=== PATIENT | male | born 1985 | race Caucasian/White ===

== ENCOUNTER 2017-01-01 07:55 | Emergency (ER) | payer OTHER ==
[~2017-01-01] VITALS: Ht 175.3 cm; Wt 72.6 kg
[2017-01-01] MEDS ORDERED: DOK (08:06)
[2017-01-01 09:19] LABS: MEAN CORPUSCULAR HEMOGLOBIN 30.5 pg (27.0-33.0); MEAN CORPUSCULAR HGB CONC 36.2 g/dl (32.0-36.5); MEAN CORPUSCULAR VOLUME 84.2 fl (80.0-96.0); RED CELL DISTRIBUTION WIDTH 12.3 % (11.5-14.5)
[2017-01-01 09:41] LABS: INR 1.08
[2017-01-01 10:39] VITALS: BP 135/74
== END 2017-01-01 10:40 | disposition home or self-care (01) ==
LOC: M ED 09:01
DX: K64.5 Perianal venous thrombosis (principal); F17.200 Nicotine dependence, unspecified, uncomplicated

== ENCOUNTER 2017-11-19 08:17 | Inpatient (IN) | payer OTHER ==
[2017-11-19] MEDS: NICOTINE 21MG/24HR 1 EA TRANSDERMAL TD (09:00)
[2017-11-19 10:13] LABS: HEMATOCRIT 46.7 % (42.0-52.0); HEMOGLOBIN 16.4 g/dl (14.0-18.0); MEAN CORPUSCULAR HEMOGLOBIN 28.7 pg (27.0-33.0); MEAN CORPUSCULAR HGB CONC 35.1 g/dl (32.0-36.5); MEAN CORPUSCULAR VOLUME 81.8 fl (80.0-96.0); PLATELET COUNT, AUTOMATED 350 10^3/uL (150-450); RED BLOOD COUNT 5.71 10^6/uL (4.30-6.10); RED CELL DISTRIBUTION WIDTH 12.8 % (11.5-14.5); WHITE BLOOD COUNT 12.8 10^3/uL (4.0-10.0)
[2017-11-19 10:59] LABS: AMPHETAMINES LEVEL URINE NEGATIVE (NEGATIVE); BARBITURATES URINE NEGATIVE (NEGATIVE); BENZODIAZEPINES URINE NEGATIVE (NEGATIVE); CANNABINOIDS URINE NEGATIVE (NEGATIVE); COCAINE METABOLITE URINE NEGATIVE (NEGATIVE); METHADONE URINE NEGATIVE (NEGATIVE); OPIATES URINE NEGATIVE (NEGATIVE); PHENCYCLIDINE URINE NEGATIVE (NEGATIVE)
[2017-11-19 11:01] LABS: ALBUMIN 4.1 GM/DL (3.2-5.2); ALBUMIN/GLOBULIN RATIO 1.32 (1.00-1.93); ALKALINE PHOSPHATASE 90 U/L (45-117); ALT/SGPT 21 U/L (12-78); ANION GAP 6 MEQ/L (8-16); AST/SGOT 14 U/L (7-37); BILIRUBIN,DIRECT 0.1 MG/DL (0.0-0.2); BILIRUBIN,TOTAL 0.6 MG/DL (0.2-1.0); BLOOD UREA NITROGEN 16 MG/DL (7-18); CALCIUM LEVEL 8.9 MG/DL (8.5-10.1); CARBON DIOXIDE LEVEL 25 MEQ/L (21-32); CHLORIDE LEVEL 110 MEQ/L (98-107); CREATININE FOR GFR 0.93 MG/DL (0.70-1.30); ETHYL ALCOHOL (ETHANOL) < 0.003 % (0.000-0.010); GLOMERULAR FILTRATION RATE > 60.0 (>60); GLUCOSE, FASTING 97 MG/DL (70-100); SALICYLATE LEVEL 4.5 MG/DL (5.0-30.0); SODIUM LEVEL 141 MEQ/L (136-145); THYROID STIMULATING HORMONE 0.697 uIU/ML (0.358-3.740); TOTAL PROTEIN 7.2 GM/DL (6.4-8.2)
[2017-11-19 11:03] LABS: ACETAMINOPHEN LEVEL < 2.0 UG/ML (10.0-30.0)
[2017-11-19] MEDS ORDERED: MOM 30ML SUSPENSION UDC PO (15:15)
[2017-11-19] MEDS ORDERED: ACETAMINOPHEN TAB 650MG DOSE (2X325MG) PO (15:15)
[2017-11-19] MEDS: OLANZapine ORAL DISINTEGRATING TAB 5MG PO (17:55)
[2017-11-19] MEDS: MAALOX 30 ML SUSP *UDC PO (19:05)
[2017-11-20] MEDS ORDERED: NICOTINE 21MG/24HR 1 EA TRANSDERMAL TD (09:00)
[2017-11-20] MEDS: NICOTINE 21MG/24HR 1 EA TRANSDERMAL TD (09:01)
[2017-11-20] MEDS: OLANZapine ORAL DISINTEGRATING TAB 5MG PO ×2 (09:06→18:03)
[2017-11-20] MEDS: traZODone 50 MG TAB PO (21:24)
[2017-11-21 06:39] LABS: HEMATOCRIT 46.4 % (42.0-52.0); MEAN CORPUSCULAR HEMOGLOBIN 29.3 pg (27.0-33.0); MEAN CORPUSCULAR HGB CONC 34.5 g/dl (32.0-36.5); MEAN CORPUSCULAR VOLUME 84.8 fl (80.0-96.0); PLATELET COUNT, AUTOMATED 301 10^3/uL (150-450); RED BLOOD COUNT 5.47 10^6/uL (4.30-6.10); RED CELL DISTRIBUTION WIDTH 12.8 % (11.5-14.5); WHITE BLOOD COUNT 7.3 10^3/uL (4.0-10.0)
[2017-11-21] MEDS: NICOTINE 21MG/24HR 1 EA TRANSDERMAL TD (08:09)
[2017-11-21] MEDS: MAALOX 30 ML SUSP *UDC PO (11:29)
[2017-11-21] MEDS: OLANZapine ORAL DISINTEGRATING TAB 5MG PO (20:52)
[2017-11-21] MEDS: traZODone 50 MG TAB PO (21:03)
[2017-11-22] MEDS: NICOTINE 21MG/24HR 1 EA TRANSDERMAL TD (08:58)
[2017-11-22] MEDS: MAALOX 30 ML SUSP *UDC PO (09:01)
[2017-11-22] MEDS: OLANZapine ORAL DISINTEGRATING TAB 5MG PO (11:37)
[2017-11-22] MEDS: traZODone 50 MG TAB PO (22:05)
[2017-11-23] MEDS: OLANZapine ORAL DISINTEGRATING TAB 5MG PO ×2 (01:55→22:47)
[2017-11-23] MEDS: NICOTINE 21MG/24HR 1 EA TRANSDERMAL TD (10:32)
[2017-11-23] MEDS: MAALOX 30 ML SUSP *UDC PO (20:02)
[2017-11-23] MEDS: traZODone 100 MG TAB PO (22:47)
[2017-11-24] MEDS: NICOTINE 21MG/24HR 1 EA TRANSDERMAL TD ×2 (09:00→14:20)
[2017-11-24] MEDS: MAALOX 30 ML SUSP *UDC PO (21:21)
[2017-11-24] MEDS: OLANZapine ORAL DISINTEGRATING TAB 5MG PO (22:13)
[2017-11-24] MEDS: traZODone 100 MG TAB PO (22:13)
[2017-11-25] MEDS: NICOTINE 21MG/24HR 1 EA TRANSDERMAL TD (08:43)
== END 2017-11-25 12:30 | disposition home or self-care (01) | DRG 882 ==
LOC: M ED 08:17 → M ED INP 11:51 → M PSY 13:36
DX: F43.23 Adjustment disorder with mixed anxiety and depressed mood (principal); F17.200 Nicotine dependence, unspecified, uncomplicated; D72.829 Elevated white blood cell count, unspecified

== ENCOUNTER 2018-03-31 10:09 | Inpatient (IN) | payer OTHER ==
[2018-03-31 10:46] LABS: HEMATOCRIT 45.5 % (42.0-52.0); HEMOGLOBIN 16.2 g/dl (13.5-17.5); MEAN CORPUSCULAR HEMOGLOBIN 29.4 pg (27.0-33.0); MEAN CORPUSCULAR HGB CONC 35.6 g/dl (32.0-36.5); MEAN CORPUSCULAR VOLUME 82.6 fl (80.0-96.0); PLATELET COUNT, AUTOMATED 274 10^3/uL (150-450); RED BLOOD COUNT 5.51 10^6/uL (4.30-6.10); RED CELL DISTRIBUTION WIDTH 12.3 % (11.5-14.5); WHITE BLOOD COUNT 9.5 10^3/uL (4.0-10.0)
[2018-03-31 11:15] LABS: AMPHETAMINES LEVEL URINE NEGATIVE (NEGATIVE); BARBITURATES URINE NEGATIVE (NEGATIVE); BENZODIAZEPINES URINE NEGATIVE (NEGATIVE); CANNABINOIDS URINE NEGATIVE (NEGATIVE); COCAINE METABOLITE URINE NEGATIVE (NEGATIVE); METHADONE URINE NEGATIVE (NEGATIVE); OPIATES URINE NEGATIVE (NEGATIVE); PHENCYCLIDINE URINE NEGATIVE (NEGATIVE)
[2018-03-31 11:22] LABS: ALBUMIN 4.1 GM/DL (3.2-5.2); ALBUMIN/GLOBULIN RATIO 1.32 (1.00-1.93); ALKALINE PHOSPHATASE 76 U/L (45-117); ALT/SGPT 30 U/L (12-78); ANION GAP 8 MEQ/L (8-16); AST/SGOT 14 U/L (7-37); BILIRUBIN,DIRECT 0.1 MG/DL (0.0-0.2); BILIRUBIN,TOTAL 0.4 MG/DL (0.2-1.0); BLOOD UREA NITROGEN 14 MG/DL (7-18); CALCIUM LEVEL 8.8 MG/DL (8.5-10.1); CARBON DIOXIDE LEVEL 28 MEQ/L (21-32); CHLORIDE LEVEL 106 MEQ/L (98-107); ETHYL ALCOHOL (ETHANOL) < 0.003 % (0.000-0.010); GLOMERULAR FILTRATION RATE > 60.0 (>60); GLUCOSE, FASTING 94 MG/DL (70-100); POTASSIUM SERUM 3.8 MEQ/L (3.5-5.1); SALICYLATE LEVEL 3.4 MG/DL (5.0-30.0); SODIUM LEVEL 142 MEQ/L (136-145); TOTAL PROTEIN 7.2 GM/DL (6.4-8.2)
[2018-03-31 11:36] LABS: ACETAMINOPHEN LEVEL < 2.0 UG/ML (10.0-30.0)
[2018-03-31] MEDS ORDERED: VENLAFAXINE 37.5 MG TAB PO (16:45)
[2018-03-31] MEDS ORDERED: hydrOXYzine 50 MG TAB PO (16:45)
[2018-03-31] MEDS ORDERED: MAALOX 30 ML SUSP *UDC PO (16:45)
[2018-03-31] MEDS ORDERED: MOM 30ML SUSPENSION UDC PO (16:45)
[2018-03-31] MEDS: VENLAFAXINE **XR** 75MG CAPSULE PO (18:04)
[2018-03-31] MEDS: NICOTINE 21MG/24HR 1 EA TRANSDERMAL TD (18:05)
[2018-03-31] MEDS: ACETAMINOPHEN TAB 650MG DOSE (2X325MG) PO (18:06)
[2018-03-31] MEDS: diphenhydrAMINE 25 MG CAP PO (20:58)
[2018-04-01] MEDS: NICOTINE 21MG/24HR 1 EA TRANSDERMAL TD (09:00)
[2018-04-01] MEDS: VENLAFAXINE **XR** 75MG CAPSULE PO ×2 (09:00→18:22)
[2018-04-01] MEDS: diphenhydrAMINE 25 MG CAP PO (21:11)
[2018-04-02] MEDS: PILL CRUSHER/CUTTER 1 EACH XX (08:19)
[2018-04-02] MEDS: NICOTINE 21MG/24HR 1 EA TRANSDERMAL TD (08:20)
[2018-04-02] MEDS: VENLAFAXINE **XR** 75MG CAPSULE PO (17:50)
[2018-04-02] MEDS: diphenhydrAMINE 25 MG CAP PO (21:07)
[2018-04-03] MEDS: NICOTINE 21MG/24HR 1 EA TRANSDERMAL TD (09:14)
[2018-04-03] MEDS: VENLAFAXINE **XR** 75MG CAPSULE PO (17:34)
[2018-04-03] MEDS: diphenhydrAMINE 25 MG CAP PO (21:44)
[2018-04-04] MEDS: NICOTINE 21MG/24HR 1 EA TRANSDERMAL TD (08:15)
[2018-04-04] MEDS: VENLAFAXINE **XR** 75MG CAPSULE PO (17:11)
[2018-04-04] MEDS: diphenhydrAMINE 25 MG CAP PO (22:08)
[2018-04-05] MEDS: NICOTINE 21MG/24HR 1 EA TRANSDERMAL TD (09:02)
[2018-04-05] MEDS: VENLAFAXINE **XR** 75MG CAPSULE PO (17:13)
[2018-04-05] MEDS: diphenhydrAMINE 25 MG CAP PO (22:52)
[2018-04-06] MEDS: NICOTINE 21MG/24HR 1 EA TRANSDERMAL TD (08:59)
[2018-04-06] MEDS: VENLAFAXINE **XR** 75MG CAPSULE PO (17:59)
[2018-04-06] MEDS: diphenhydrAMINE 25 MG CAP PO (20:55)
[2018-04-06] MEDS: traZODone 50 MG TAB PO (22:22)
[2018-04-07] MEDS: NICOTINE 21MG/24HR 1 EA TRANSDERMAL TD (08:08)
== END 2018-04-07 11:15 | disposition home or self-care (01) | DRG 885 ==
LOC: M ED 10:09 → M ED INP 13:33 → M PSY 14:25
DX: F33.2 Major depressive disorder, recurrent severe without psychotic features (principal); R45.851 Suicidal ideations; F31.9 Bipolar disorder, unspecified; Z79.899 Other long term (current) drug therapy; G47.00 Insomnia, unspecified; F17.200 Nicotine dependence, unspecified, uncomplicated

== ENCOUNTER 2022-06-24 12:39 | Emergency (ER) | payer OTHER ==
[~2022-06-24] VITALS: Ht 175.3 cm; Wt 91.9 kg
[~2022-06-24 12:39] MED LIST: ARIP1TAB6 PO; DIPH25CA32 PO; DOK; EFFE150C2 PO; IBUP-1022 PO; IBUPOTC PO; NICO21PAT TD; TRAZ1TAB12 PO
[2022-06-24 15:13] LABS: HEMATOCRIT 45.9 % (42.0-52.0); MEAN CORPUSCULAR HEMOGLOBIN 28.9 pg (27.0-33.0); MEAN CORPUSCULAR HGB CONC 34.9 g/dl (32.0-36.5); PLATELET COUNT, AUTOMATED 314 10^3/uL (150-450); RED BLOOD COUNT 5.53 10^6/uL (4.30-6.10)
[2022-06-24 15:39] LABS: AMPHETAMINES LEVEL URINE NEGATIVE (NEGATIVE); BARBITURATES URINE NEGATIVE (NEGATIVE); BENZODIAZEPINES URINE NEGATIVE (NEGATIVE); CANNABINOIDS URINE NEGATIVE (NEGATIVE); COCAINE METABOLITE URINE NEGATIVE (NEGATIVE); METHADONE URINE NEGATIVE (NEGATIVE); OPIATES URINE NEGATIVE (NEGATIVE); PHENCYCLIDINE URINE NEGATIVE (NEGATIVE)
[2022-06-24 15:44] LABS: RSV AMPLIFICATION NEGATIVE (NEGATIVE)
[2022-06-24 15:49] LABS: ACETAMINOPHEN LEVEL < 2.0 UG/ML (10.0-30.0); ALT/SGPT 38 U/L (12-78); BILIRUBIN,DIRECT 0.1 MG/DL (0.0-0.2); BILIRUBIN,TOTAL 0.4 MG/DL (0.2-1.0); BLOOD UREA NITROGEN 21 MG/DL (7-18); CALCIUM LEVEL 9.2 MG/DL (8.5-10.1); CARBON DIOXIDE LEVEL 24 MEQ/L (21-32); CHLORIDE LEVEL 108 MEQ/L (98-107); CREATININE FOR GFR 1.07 MG/DL (0.70-1.30); ETHYL ALCOHOL (ETHANOL) < 0.003 % (0.000-0.010); GLOMERULAR FILTRATION RATE > 60.0 (>60); GLUCOSE, FASTING 104 MG/DL (70-100); POTASSIUM SERUM 4.4 MEQ/L (3.5-5.1); SALICYLATE LEVEL < 1.7 MG/DL (5.0-30.0); SODIUM LEVEL 137 MEQ/L (136-145); THYROID STIMULATING HORMONE 0.305 uIU/ML (0.358-3.740); TOTAL PROTEIN 7.5 GM/DL (6.4-8.2)
[2022-06-24] MEDS ORDERED: VENL150C43 PO (19:54)
[2022-06-24] MEDS ORDERED: VENL37.598 PO (19:54)
[2022-06-24] MEDS ORDERED: HOME MED LIST COMPLETE! XX SCH (19:55)
[2022-06-24 22:52] LABS: APPEARANCE, URINE MANUAL CLEAR (CLEAR); BILIRUBIN, URINE MANUAL NEGATIVE (NEGATIVE); BLOOD URINE MANUAL NEGATIVE (NEGATIVE); COLOR, URINE MANUAL YELLOW (YELLOW); GLUCOSE, URINE (UA) MANUAL 2+(250 MG/DL) mg/dL (NEGATIVE); KETONE, URINE MANUAL NEGATIVE (NEGATIVE); LEUKOCYTE ESTERASE, URINE MAN NEGATIVE (NEGATIVE); NITRITE, URINE MANUAL NEGATIVE (NEGATIVE); PROTEIN, URINE MANUAL NEGATIVE (NEGATIVE); UROBILINOGEN, URINE MANUAL NORMAL (NORMAL)
[2022-06-25 06:12] VITALS: BP 127/63
== END 2022-06-25 09:35 ==
LOC: M ED 12:39
DX: R45.851 Suicidal ideations (principal); F32.A Depression, unspecified; R00.1 Bradycardia, unspecified; I10 Essential (primary) hypertension; Z79.899 Other long term (current) drug therapy

== ENCOUNTER 2023-03-09 12:59 | Emergency (ER) | payer OTHER ==
[~2023-03-09] VITALS: Ht 175.3 cm; Wt 97.1 kg
[~2023-03-09 12:59] MED LIST changes: +DIPH-435 PO; -DIPH25CA32 PO; +VENL150C43 PO; +VENL37.598 PO
[2023-03-09] MEDS ORDERED: METOCLOPRAMIDE INJ 10MG/2ML VIAL IV ONE (13:55)
[2023-03-09] MEDS ORDERED: diphenhydrAMINE 50MG/ML VIAL IV ONE (13:55)
[2023-03-09] MEDS ORDERED: NS 1,000 ML IV ONE (13:55)
[2023-03-09] MEDS ORDERED: KETOROLAC 30 MG/ML 1ML VIAL IV ONE (15:50)
[2023-03-09 16:03] VITALS: BP 131/81; TEMP 96.2; O2SAT 99
== END 2023-03-09 16:05 | disposition home or self-care (01) ==
LOC: M ED 12:59
DX: G43.909 Migraine, unspecified, not intractable, without status migrainosus (principal); F32.A Depression, unspecified; I10 Essential (primary) hypertension; Z79.899 Other long term (current) drug therapy
CPT/HCPCS: 70450; 96361; 96374; 96375; 99284; J1100; J1200; J2765